=== PATIENT | female | born 1980 | race Two or more races ===

== ENCOUNTER 2025-04-20 06:29 | Emergency (ER) | payer MEDICAID, SELFPAY ==
[2025-04-20 06:34] VITALS: BMI 26.9
[2025-04-20 06:48] VITALS: BP 138/92; PULSE 77; RESP 16; TEMP 36.9; O2SAT 99
--- NOTE | 2025-04-20 07:03 | EDNOTE_ITS ---
<Statement entered by Silvana Dallas MD - 04/21/25 15:24> As co-signing physician, I was present and available for consult prn. I concur with the plan and care as documented by the midlevel provider. ED General RME/HPI General Chief complaint: Headache Stated complaint: HEADACHE, DIZZINESS, PALPITATIONS Time Seen by Provider: 04/20/25 06:50 Arrival date/time: 04/20/25 06:29 CC: Headache HPI ongoing since yesterday prior history of similar events with spontaneously resolved patient states she has not taken any medications for this headache that includes some ringing in her right ear and mild dizziness. Patient is awake alert oriented nontoxic-appearing not in any acute distress. Related Data Previous Rx's ?Medication ?Instructions ?Recorded meloxicam 7.5 mg tablet 7.5 mg PO QDAY #10 tabs 04/07 Allergies Allergy/AdvReac Type Severity Reaction Status Date / Time ampicillin Allergy Verified 04/20/25 06:43 metampicillin Allergy Verified 04/20/25 06:43 Review of Systems Review of Systems Narrative Review of Systems: GEN: No fever, no chills, no weight loss EYES: No discharge, no visual changes, no pain HEENT: No ear pain, no congestion, no sore throat PULM: No shortness of breath, no cough, no congestion CV: No chest pain, no dyspnea on exertion, no palpitations GI: No nausea, no vomiting, no diarrhea, no pain, no constipation : No frequency, no urgency, no dysuria MUSC/SKEL: No joint pain, no back pain SKIN: No rash PSYCH: No hallucinations, no depression HEME/LYMPH: No easy bleeding or bruising tendencies NEURO: No weakness, + headache ED Exam Narrative Physical exam: [General: Obese not in any acute distress Head normocephalic HEENT: Within acceptable limits Neck is supple nontender Chest equal chest rise nontender to palpation Respiratory: Clear to auscultation no wheezes crackles or rubs CV: Rate rhythm is regular no murmurs rubs or clicks Abdomen is distended secondary to body habitus soft nontender no masses positive bowel sounds all 4 quadrants Back: No CVA tenderness no spinous process tenderness from cervical spine thoracic and lumbar spine Skin: Intact no petechiae rash induration ulceration or crepitus Extremities: Moving all extremity against resistance cap refill less than 2 seconds neurosensory intact Neuro: Awake alert oriented x3 Glascow coma 15 no focal deficits] Course Quality Measures none Orders Category Date Time Status HCG Qualitative,Urine Stat Lab 04/20/25 07:30 Completed DiphenhydrAMINE INJ [Benadryl Inj] Med 04/20/25 07:00 Discontinued 25 mg IM X1 ONE Ketorolac Inj [Toradol Inj] Med 04/20/25 07:00 Discontinued 30 mg IM X1 ONE Prochlorperazine Inj [Compazine Inj] Med 04/20/25 07:00 Discontinued 10 mg IM X1 ONE Vital Signs Vital signs: Vital Signs Temperature 98.5 F 04/20/25 06:48 Pulse Rate 77 04/20/25 06:48 Respiratory Rate 16 04/20/25 06:48 Blood Pressure 138/92 H 04/20/25 06:48 Pulse Oximetry (%) 99 04/20/25 06:48 Oxygen Delivery Method Room Air 04/20/25 06:48 Discharge Plan Plan Patient Disposition: HOME (Self Care) Patient condition on transfer: Stable Prescriptions/Referrals Prescriptions/Med Rec: New meloxicam 7.5 mg tablet 7.5 mg PO QDAY Qty: 10 0RF Problem List Clinical Impression: Headache Patient/Caregiver Discharge Instructions Education Materials: Self-Care for Headaches Print Language: [place] Stand Alone Forms: [employer]iffanie Award Info., Patient Portal Info Letter PA/[employer]ION [employer]UCER Supervising Physician PA/[employer] Supervising Physician: Jason Siegel ENP [facility] Clinical Information Provided by patient Medical Records Reviewed [facility] Meds/Rx Considered, not Ordered None Labs/Rad/Tests considered, not Ordered None Chronic Illness/Social Conditions which may negatively complicate care or outcome(s)-explain: None or not applicable EKG EKG not done Lab Interpretation Labs: none Imaging Imaging interpretation: none Medication Administration(s) Medication Administration History Discontinued Medications Diphenhydramine HCl (Diphenhydramine Inj 50 Mg/Ml Vial) 25 mg IM X1 ONE Stop: 04/20/25 07:01 Last Admin: 04/20/25 07:14 Dose: 25 mg Documented By: JESUS Ketorolac Tromethamine (Ketorolac Inj 60 Mg/2 Ml Vial) 30 mg IM X1 ONE Stop: 04/20/25 07:01 Last Admin: 04/20/25 07:13 Dose: 30 mg Documented By: JESUS Prochlorperazine Edisylate (Prochlorperazine Inj 5 Mg/Ml Vial 2 Ml) 10 mg IM X1 ONE; Protocol Stop: 04/20/25 07:01 Last Admin: 04/20/25 08:23 Dose: 10 mg Documented By: CORINA Diagnosis Differential diagnosis: Migraine headache cluster headache Dispositon Disposition: Discharge Home
[2025-04-20] MEDS: KETOROLAC INJ 60 MG/2 ML VIAL 30 MG IM (07:13)
[2025-04-20 08:04] LABS: HCG Qualitative,Urine Negative
[2025-04-20] MEDS: PROCHLORPERAZINE INJ 5 MG/ML VIAL 2 ML 10 MG IM (08:23)
--- NOTE | 2025-04-20 08:25 | PC.NURSE ---
PT REPORTS THAT SHE IS FEELING MUCH BETTER AND IS HAVING NO PAIN.
== END 2025-04-20 09:09 | disposition home or self-care (01) ==
LOC: SERX 07:48
PROVIDERS: Registered Nurse General Practice; Emergency Provider Emergency Medicine
DX: R51.9 Headache, unspecified (principal)
CPT/HCPCS: 81025; 96372; 99283; J0780; J1200; J1885

== ENCOUNTER → 2025-07-03 | Outpatient (CLI) | payer MEDICAID, SELFPAY ==
--- NOTE | 2025-07-03 13:00 | XR_ITS ---
Examination: Screening digital mammography, bilateral Computer aided detection 3-D breast Tomosynthesis, bilateral Date and time of exam: July 03, 2025, 1344 hours Indication: Screening Technique: Nonmagnified MLO, CC views of the breasts to been obtained, reconstructed from 3-D Tomosynthesis images. R2 computer aided detection program utilized for evaluation of suspicious masses and/or abnormal calcifications. 3-D Tomosynthesis images obtained. Findings: The breasts are heterogeneously dense, which may obscure small masses 6 mm circumscribed nodule 12 o'clock position right breast anterior depth Benign calcifications Impression: BI-RADS Category 0: Incomplete: Need additional imaging evaluation Recommend follow-up spot tomographic views a 6 mm nodule 12 o'clock position right breast as well as bilateral breast sonography decaliter .
== END | disposition home or self-care (01) ==
DX: Z12.31 Encounter for screening mammogram for malignant neoplasm of breast (principal); R92.8 Other abnormal and inconclusive findings on diagnostic imaging of breast; N63.15 Unspecified lump in the right breast, overlapping quadrants
CPT/HCPCS: 77063; 77067